=== PATIENT | male | born 1985 | race Caucasian/White ===

== ENCOUNTER 2018-09-05 19:21 | Emergency (ER) | payer MEDICAID ==
[~2018-09-05] VITALS: Ht 165.1 cm; Wt 83.8 kg
[~2018-09-05 19:21] MED LIST: BACTDS PO; CEPH-443 PO; HYDR-3980 PO; IBUP800T48 PO; SULF1TAB31 PO
[2018-09-05 19:26] VITALS: Ht 165.1 cm; Wt 83.8 kg
[2018-09-05] MEDS ORDERED: ONDANSETRON (ODT) 4 MG TAB ODT STA (20:24)
--- NOTE | 2018-09-05 20:26 | ERD ---
ER Documentation Chief Complaint Chief Complaint states abscess coccyx area x 5 days HPI This is a 33-year-old male who presents emergency department with complaints of abscess to his tailbone that started 5 days ago. Denies headache, head injury, loss of consciousness, dizziness, neck pain, neck stiffness, throat pain, difficulty swallowing, difficulty breathing lying flat, shoulder pain, chest pain, back pain, abdominal pain, nausea, vomiting, constipation, diarrhea, urinary symptoms, loss of bowel and bladder control, trauma, injury, falls, difficulty walking due to pain, numbness or tingling sensation, calf pain, recent travel, recent major surgery in the last 3 weeks, calf pain, recent long travel, recent exposure to any illness, recent antibiotic use in the last 3 months, fever, chills, seizures. Past medical history: Denies. Surgical history: Denies. Social: Denies smoking, use of alcoholic beverages, use of illegal drugs. ROS All systems reviewed and are negative except as per history of present illness. Medications Home Meds Active Scripts Hydrocodone/Acetaminophen ([place] 10-325 Tablet) 1 Each Tablet, 1 TAB PO Q6H PRN for SEVERE PAIN LEVEL 7-10, #5 TAB Prov:PASILABAN,CLARISAAR F 09/05/18 Ibuprofen* (Motrin*) 800 Mg Tab, 800 MG PO Q8 PRN for PAIN AND OR ELEVATED TEMP, #30 TAB Prov:PASILABAN,CLARISAAR F 09/05/18 Cephalexin* (Keflex*) 500 Mg Capsule, 500 MG PO TID for 7 Days, CAP Prov:PASILABAN,KLAR F 09/05/18 Sulfamethoxazole/Trimethoprim* (Bactrim Ds* Tablet) 1 Each Tablet, 1 TAB PO BID for 7 Days, #14 TAB Prov:PASILABAN,CLARISAAR F 09/05/18 Sulfamethoxazole-Trimethoprim* (Bactrim* DS) 800-160 Mg Tab, 1 TAB PO BID for 7 Days, TAB Prov:PROPARK BESS-C 12/14/15 Cephalexin* (Keflex*) 500 Mg Capsule, 500 MG PO QID for 7 Days, CAP Prov:PROPARK BESS-C 12/14/15 Ibuprofen* (Motrin*) 800 Mg Tab, 800 MG PO Q6, #30 TAB Prov:PROPARK BESS-C 12/14/15 Hydrocodone/Acetaminophen ([place] 10-325 Tablet) 1 Each Tablet, 1 TAB PO Q6H PRN for PAIN, #12 TAB Prov:LEENAPARK Morley PA-C 12/14/15 Allergies Allergies: Coded Allergies: No Known Allergy (Unverified , 12/14/15) PMhx/Soc Hx Alcohol Use: No Hx Substance Use: No Hx Tobacco Use: No Physical Exam Vitals Vital Signs Date Temp Pulse Resp B/P (MAP) Pulse Ox O2 O2 Flow FiO2 Time Delivery Rate 09/05/18 98.3 93 18 121/78 98 21:54 (92) 09/05/18 99.0 107 20 131/90 98 19:26 (104) Physical Exam Const: No acute distress Head: Atraumatic Eyes: Normal Conjunctiva. ENT: Normal External Ears, Nose and Mouth. Neck: Full range of motion. No meningismus. Resp: Clear to auscultation bilaterally Cardio: Regular rate and rhythm, no murmurs Abd: Soft, non tender, non distended. Normal bowel sounds. Negative Massey sign. Negative Davenport sign (heel jar test). Negative psoas sign. Negative Rovsing sign. Able to jump 10 times without developing lower abdominal pain. No CVA tenderness. Ambulatory with steady gait and without pain to abdomen. Skin: No petechiae or rashes. Color appears normal for ethnicity. No skin tenting. No signs of severe dehydration. Noted swelling/redness to coccyx area with warmness to touch. Rectal area: No hemorrhoids. No signs of perirectal abscess. Back: No midline or flank tenderness Ext: No cyanosis, or edema Neur: Awake and alert. No neurological deficits. Psych: Normal Mood and Affect Results 24 hrs Current Medications Medications Dose Sig/Jamila Start Time Status Last (Trade) Ordered Route PRN Stop Time Admin Dose Reason Admin Lidocaine/ 50 ml ONCE ONCE 09/05/18 DC Epinephrine INJ 20:30 (Xylocaine 09/05/18 20:31 1%/ Epi (Mdv)) 1 tab ONCE ONCE 09/05/18 DC 09/05/18 Acetaminophen PO 20:30 20:42 / 09/05/18 20:31 Hydrocodone Bitart ([place] (10/325)) Ondansetron 4 mg ONCE STAT 09/05/18 DC 09/05/18 HCl (Zofran ODT 20:24 20:41 Odt) 09/05/18 20:26 Ibuprofen 800 mg ONCE ONCE 09/05/18 DC 09/05/18 (Motrin) PO 20:30 20:42 09/05/18 20:31 Cephalexin 500 mg ONCE ONCE 09/05/18 DC 09/05/18 (Keflex) PO 21:00 20:59 09/05/18 21:01 1 tab ONCE ONCE 09/05/18 DC 09/05/18 Trimethoprim/ PO 21:00 20:59 09/05/18 21:01 Sulfamethoxaz ole (Bactrim (Ds)) Procedures/MDM Diagnostic tests: Clinical exam. Treatment: [place] p.o. Motrin. Procedure: Incision and drainage of pilonidal cyst. Verbal consent was taken from the patient and family member. Betadine prep. Lidocaine 1% with epi 2 cc subcu. Use scalpel to incised the cyst. Drained copious mucopurulent drainage. Packed with iodoform. Dressing was applied by EMT. Re-evaluation: No active bleeding. Ambulatory with steady gait and without pain. Stated that he feels much better this time and that he is ready to go home. Stated that he is comfortable to go home. Differential diagnosis I have low suspicion for sepsis, perirectal abscess. Final diagnosis: Pilonidal cyst with incision and drainage. Prescription: Bactrim. Keflex. [place]. Motrin. Follow-up with PCP in the next 24-48 hours. Come back in 2 days for removal of packing and/or repacking. Come back here in the emergency department for any new symptoms or any worsening symptoms. All questions and concerns were answered. Patient and family members verbalized understanding and agreed with plan of care. Hemodynamically stable on discharge. Departure Diagnosis: Primary Impression: Pilonidal cyst with abscess Condition: Stable Additional Instructions: Follow-up with PCP in the next 24-48 hours. Come back in 2 days for removal of packing and/or repacking. Come back here in the emergency department for any new symptoms or any worsening symptoms. OLIVERIO CATES Sep 05, 2018 20:26
[2018-09-05] MEDS ORDERED: LIDOCAINE 1%/EPI (MDV) 50 ML INJ INJ ONE (20:30)
[2018-09-05] MEDS ORDERED: IBUPROFEN 800 MG TAB PO ONE (20:30)
[2018-09-05] MEDS ORDERED: HYDROCODONE/APAP (10/325) TAB PO ONE (20:30)
[2018-09-05] MEDS ORDERED: TRIMETHOPRIM/SULFAMETHOX (DS) TAB PO ONE (21:00)
[2018-09-05] MEDS ORDERED: CEPHALEXIN 500 MG CAP PO ONE (21:00)
[2018-09-05 21:54] VITALS: BP 121/78; PULSE 93; RESP 18
== END 2018-09-05 21:55 | disposition home or self-care (01) ==
LOC: FTE 19:21
DX: L05.92 Pilonidal sinus without abscess (principal)
CPT/HCPCS: 10080; Z7502; Z7610

== ENCOUNTER 2018-09-08 18:37 | Emergency (ER) | payer MEDICAID ==
[~2018-09-08] VITALS: Ht 165.1 cm; Wt 84.6 kg
[2018-09-08 18:46] VITALS: BP 144/95; PULSE 98; RESP 18; Ht 165.1 cm; Wt 84.6 kg
--- NOTE | 2018-09-08 20:36 | ERD ---
ER Documentation Chief Complaint Chief Complaint recheck abscess lower back, was here 2 days ago HPI 33-year-old male no significant past history presents for recheck of a pilonidal abscess that was drained about 2 days ago here in the ER. She denies any fevers or chills. Denies chest pain or shortness of breath. He thinks that the wound is healing well. He is on antibiotics currently. No other modifying factors noted. No other treatments tried. ROS All systems reviewed and are negative except as per history of present illness. Medications Home Meds Active Scripts Hydrocodone/Acetaminophen ([place] 10-325 Tablet) 1 Each Tablet, 1 TAB PO Q6H PRN for SEVERE PAIN LEVEL 7-10, #5 TAB Prov:PASILABANOLIVERIO F 09/05/18 Ibuprofen* (Motrin*) 800 Mg Tab, 800 MG PO Q8 PRN for PAIN AND OR ELEVATED TEMP, #30 TAB Prov:PASILABANCLARISAAR F 09/05/18 Cephalexin* (Keflex*) 500 Mg Capsule, 500 MG PO TID for 7 Days, CAP Prov:PASILABAN,CLARISAAR F 09/05/18 Sulfamethoxazole/Trimethoprim* (Bactrim Ds* Tablet) 1 Each Tablet, 1 TAB PO BID for 7 Days, #14 TAB Prov:PASILABANOLIVERIO F 09/05/18 Sulfamethoxazole-Trimethoprim* (Bactrim* DS) 800-160 Mg Tab, 1 TAB PO BID for 7 Days, TAB Prov:PARK STERN-C 12/14/15 Cephalexin* (Keflex*) 500 Mg Capsule, 500 MG PO QID for 7 Days, CAP Prov:PROPARK BESS-C 12/14/15 Ibuprofen* (Motrin*) 800 Mg Tab, 800 MG PO Q6, #30 TAB Prov:PROPARK BESS-C 12/14/15 Hydrocodone/Acetaminophen ([place] 10-325 Tablet) 1 Each Tablet, 1 TAB PO Q6H PRN for PAIN, #12 TAB Prov:PARK STERN-C 12/14/15 Allergies Allergies: Coded Allergies: No Known Allergy (Unverified , 12/14/15) PMhx/Soc Medical and Surgical Hx: pt denies Medical Hx, pt denies Surgical Hx Hx Alcohol Use: No Hx Substance Use: No Hx Tobacco Use: No Smoking Status: Never smoker FmHx Family History: No coronary disease Physical Exam Vitals Vital Signs Date Temp Pulse Resp B/P (MAP) Pulse Ox O2 O2 Flow FiO2 Time Delivery Rate 09/08/18 98.8 98 18 144/95 98 18:46 (111) Physical Exam Const: No acute distress Resp: Clear to auscultation bilaterally Cardio: Regular rate and rhythm, no murmurs Skin: Posterior buttock incision and drainage sites examined, there is no erythema. The packing was removed with mild discharge. Back: No midline or flank tenderness Ext: No cyanosis, or edema Neur: Awake and alert Psych: Normal Mood and Affect Procedures/MDM Medical Decision Making: Patient presents for recheck of a abscess that was incised and drained here in the ER 2 days ago. Patient appeared well on physical exam. The packing was removed here in the ER. Site appears to be healing well. No need for repacking currently. Wound care instructions given. Patient advised to follow up with PCP in 1-2 days. Patient advised to return to ED for new or worsening symptoms. Patient stable on discharge from the ED. Disclaimer: Inadvertent spelling and grammatical errors are likely due to EHR/dictation software use and do not reflect on the overall quality of patient care. Also, please note that the electronic time recorded on this note does not necessarily reflect the actual time of the patient encounter. Departure Diagnosis: Primary Impression: Encounter for wound re-check Condition: Fair Patient Instructions: Wound Care, Wound Packing Referrals: [facility] YOU HAVE RECEIVED A MEDICAL SCREENING EXAM AND THE RESULTS INDICATE THAT YOU DO NOT HAVE A CONDITION THAT REQUIRES URGENT TREATMENT IN THE EMERGENCY DEPARTMENT. FURTHER EVALUATION AND TREATMENT OF YOUR CONDITION CAN WAIT UNTIL YOU ARE SEEN IN YOUR DOCTORS OFFICE WITHIN THE NEXT 1-2 DAYS. IT IS YOUR RESPONSIBILITY TO MAKE AN APPOINTMENT FOR FOLOW-UP CARE. IF YOU HAVE A PRIMARY DOCTOR --you should call your primary doctor and schedule an appointment IF YOU DO NOT HAVE A PRIMARY DOCTOR YOU CAN CALL OUR PHYSICIAN REFERRAL HOTLINE AT IF YOU CAN NOT AFFORD TO SEE A PHYSICIAN YOU CAN CHOSE FROM THE FOLLOWING [facility] [address] [facility]. [facility] [address] [facility] [facility] [address] [facility] [address] [facility] [address] [facility] [facility] [address] Additional Instructions: Llame al doctor MAANA y chriss perez DIANE PARA DENTRO DE 1-2 FREEMAN.Dgale a la secretaria que nosotros le instruimos hacer esta diane.Avise o llame si potter condicin se empeora antes de la diane. Regresa aqui si peor o no mejor. BRIANNE DEMARCO DO Sep 08, 2018 20:36
== END 2018-09-08 20:58 | disposition home or self-care (01) ==
LOC: FTE 18:37
DX: Z48.01 Encounter for change or removal of surgical wound dressing (principal)
CPT/HCPCS: 99281